=== PATIENT | female | born 1975 | race African-American/Black ===

== ENCOUNTER 2021-03-28 16:25 | Emergency (ER) | payer OTHER, SELFPAY ==
--- NOTE | ~2021-03-28 | XR_ITS ---
EXAMINATION: XR lumbar spine 2-3V DATE: 03/28/2021 19:54 INDICATION: Low back pain TECHNIQUE: Anteroposterior and lateral views of the lumbar spine, and cone-down lateral view of the l umbosacral junction were obtained. COMPARISON: None. FINDINGS: There are 2 mm of retrolisthesis of L5 on S1. There is mild loss of intervertebral disc spa ce height at L5-S1. The vertebral body heights are maintained. There is no fracture. Calcified athero sclerosis is noted. There are phleboliths of the pelvis. IMPRESSION: 1. Mild lumbar spondylosis without acute findings. Reviewed, dictated and finalized at location A.
[2021-03-28 17:02] VITALS: BP 121/84; PULSE 59; RESP 18; TEMP 36.6; O2SAT 100
[2021-03-28 17:39] LABS: Add Urine Microscopic? NO; Appearance Urine Clear (Clear); Bilirubin Urine Negative (Negative); Blood Urine Negative (Negative); Color Urine Straw (Yellow); Glucose Urine UA Negative (Negative); Ketones Urine Negative (Negative); Leukocyte Esterase Ur Negative LEU/UL (Negative); Nitrate Urine Negative (Negative); Protein Urine Negative (Negative); Specific Grav Ur 1.011 (1.001-1.035); Urobilinogen Urine Negative mg/dL (<2.0)
[2021-03-28 19:31] VITALS: BP 112/52; PULSE 56; RESP 20; O2SAT 97
--- NOTE | 2021-03-28 21:23 | ED.BACK ---
HPI - Back Pain/Injury General Chief Complaint: Back Pain/Injury Stated Complaint: back pain Time Seen by Provider: 03/28/21 19:28 Source: patient Mode of arrival: ambulatory Limitations: no limitations History of Present Illness HPI Narrative: 45-year-old with no major medical problems here with complaints of left lower back pain for past few days. She states that she was moving boxes. She states the pain is radiating into her left lower abdomen and into her buttock area. She denies any previous back injuries or back problems. Denies any bladder or bowel incontinence. MD elicited complaint: back pain Timing: constant Severity: moderate Similar Symptoms Previously: No Quality: dull Location: lumbar spine Radiation: abdomen Exacerbating factors: movement Relieving factors: none Context: while lifting Associated symptoms: denies other symptoms Related Data Allergies Allergy/AdvReac Type Severity Reaction Status Date / Time No Known Allergies Allergy Verified 03/28/21 19:57 Review of Systems Review of Systems: All systems reviewed & are unremarkable except as noted in HPI and below Constitutional: Constitutional: Reports no additional constitutional complaints Eyes: Eyes: Reports no additional eye complaints ENT: Reports system reviewed and no additional complaints, except as documented Cardiovascular: Cardiovascular: Reports no additional cardiovascular complaints Respiratory: Respiratory: Reports no additional respiratory complaints Gastrointestinal: Gastrointestinal: Reports no additional gastrointestinal complaints Musculoskeletal: Musculoskeletal: Reports as per HPI Integumentary/Breasts: Skin/Breast: Reports system reviewed and no additional complaints, except as docu Neurologic: Reports system reviewed and no additional complaints, except as documented Endocrine: Endocrine: Reports no additional endocrine complaints Exam Narrative: GENERAL: Well-appearing, well-nourished, and in no acute distress. HEAD: Normocephalic, atraumatic. EYES: PERRLA and EOMI.. NECK: Supple. CHEST: Clear to auscultation. No respiratory distress. HEART: Regular rate and rhythm. No murmur heard. Normal peripheral pulses. ABDOMEN: Soft, nontender, nondistended, normal active bowel sounds. EXTREMITIES: Normal range of motion. No edema. Back pain in the left sacro iliac area SKIN: Warm, dry, no rash. NEURO: No focal deficits. Alert and oriented x3. PSYCH: Normal mood and affect. Course Course Emergency Course: Inform patient about her x-ray and lab work. Pain appears to be more musculoskeletal. Advised her to take pain medication and muscle relaxers as prescribed. Vital Signs Vital signs: Vital Signs Temperature 36.6 C 03/28/21 17:02 Pulse Rate 59 L 03/28/21 17:02 Respiratory Rate 18 03/28/21 17:02 Blood Pressure 121/84 03/28/21 17:02 Pulse Oximetry 100 03/28/21 17:02 Temperature 36.6 C 03/28/21 17:02 Pulse Rate 56 L 03/28/21 19:31 Respiratory Rate 20 03/28/21 19:31 Blood Pressure 112/52 L 03/28/21 19:31 Pulse Oximetry 97 03/28/21 19:31 MDM - Back Pain/Injury Lab Data Labs: Lab Results 03/28/21 Range/Units 17:22 Urine Color Straw (Yellow) Urine Appearance Clear (Clear) Urine pH 6.0 (5.0-9.0) Ur Specific [place] 1.011 (1.001-1.035) Urine Protein Negative (Negative) mg/dL Urine Glucose (UA) Negative (Negative) mg/dL Urine Ketones Negative (Negative) mg/dL Ur Blood (Man) Negative (Negative) Urine Nitrate Negative (Negative) Urine Bilirubin Negative (Negative) Urine Urobilinogen Negative (<2.0) mg/dL Leukocyte Esterase Rfl Negative (Negative) DENISSE/UL UCG Bedside Result Negative Reference Range: Negative Imaging Data Radiologist's impression: ITS Impressions Lumbar Spine X-Ray 03/28/21 20:27 IMPRESSION: 1. Mild lumbar spondylosis without acute finding
[2021-03-28] MEDS: HYDROcodone/acetaminophen (*CRX) 5-325 MG TABLET 1 TAB PO (21:47)
[2021-03-28 21:55] VITALS: BP 125/76; PULSE 54; RESP 18; TEMP 36.9; O2SAT 97
== END 2021-03-28 21:55 | disposition home or self-care (01) ==
PROVIDERS: Emergency Medicine; Emergency Provider Family Medicine
DX: S39.012A Strain of muscle, fascia and tendon of lower back, initial encounter (principal); X50.0XXA Overexertion from strenuous movement or load, initial encounter
CPT/HCPCS: 72100; 81003; 81025; 99283; A9270

== ENCOUNTER 2021-07-31 16:04 | Emergency (ER) | payer SELFPAY ==
--- NOTE | ~2021-07-31 | US_ITS ---
EXAMINATION: US pelvic complete w TV DATE: 07/31/2021 18:43 INDICATION: Vaginal bleeding TECHNIQUE: Multiple transabdominal and endovaginal sonographic images of the pelvis were obtained. COMPARISON: None. FINDINGS: The uterus measures 7.2 x 4.9 x 4.1 cm. The endometrial complex measures 6 mm. A nabothian cyst is noted in the cervix. The ovaries are not visualized however no adnexal abnormality is seen. T here is no free fluid in the pelvis. IMPRESSION: 1. No sonographic correlate for the patient's symptoms. Reviewed, dictated and finalized at location F. [employer]
--- NOTE | ~2021-07-31 | XR_ITS ---
EXAMINATION: XR shoulder LT min 2V INDICATION: Left shoulder pain TECHNIQUE: Four views of the left shoulder are submitted. COMPARISON: None FINDINGS: Normal alignment. No fracture. Glenohumeral and acromioclavicular joint spaces are normal. Soft tissues are unremarkable. There are patchy opacities of the visualized lungs. IMPRESSION: 1. No acute osseous abnormality. 2. Patchy opacities of the visualized lungs which may reflect pneumonia. Reviewed, dictated and finalized at location F. [employer]
[2021-07-31 16:05] VITALS: BP 152/95; PULSE 56; RESP 18; TEMP 35.7; O2SAT 100
--- NOTE | 2021-07-31 18:18 | ED.FEMALEGU ---
HPI - Female Genitourinary General Chief complaint: Vaginal Bleeding <Zahra Valladares PA-C - Last Filed: 07/31/21 22:17> Stated complaint: vaginal bleeding <Zahra Valladares PA-C - Last Filed: 07/31/21 22:17> Time Seen by Provider: 07/31/21 17:57 <Zahra Valladares PA-C - Last Filed: 07/31/21 22:17> Source: patient <Zahra Valladares PA-C - Last Filed: 07/31/21 22:17> Mode of arrival: ambulatory <DANIELA Hernandez Last Filed: 07/31/21 22:17> Limitations: no limitations <Zahra Valladares PA-C - Last Filed: 07/31/21 22:17> History of Present Illness HPI Narrative: This is a 46-year-old female that presents to the emergency department with multiple complaints. Reports abnormal uterine bleeding. Reports she has not had a menstrual cycle in years. Reports she started to have vaginal bleeding a couple days ago. Reports she had a similar episode about a year ago and was diagnosed with BV. Also reports she has had left shoulder pain the last couple of weeks. No known injury or trauma. The pain is worse with movement and relieved with rest. Denies fever, vomiting, dysuria, numbness or weakness. <Zahra Valladares PA-C - Last Filed: 07/31/21 22:17> Related Data Allergies/Adverse reactions: Allergies Allergy/AdvReac Type Severity Reaction Status Date / Time No Known Allergies Allergy Verified 07/31/21 18:20 <Zahra Valladares PA-C - Last Filed: 07/31/21 22:17> Review of Systems Review of Systems: CONSTITUTIONAL: Denies fever GASTROINTESTINAL: Denies abdominal pain, nausea, vomiting GENITOURINARY: Denies dysuria or hematuria. <Zahra Valladares PA-C - Last Filed: 07/31/21 22:17> All systems reviewed & are unremarkable except as noted in HPI and below <Zahra Valladares PA-C - Last Filed: 07/31/21 22:17> [facility] Past Medical History Medical History: Medical History (Updated 07/31/21 @ 22:17 by Zahra Valladares PA-C) History of hypertension <Zahra Valladares PA-C - Last Filed: 07/31/21 22:17> Social History Social History: Social History (Updated 07/31/21 @ 18:22 by Zahra Valladares PA-C) Substance use: never <Zahra Valladares PA-C - Last Filed: 07/31/21 22:17> Exam Narrative: GENERAL: Well-appearing, well-nourished, and in no acute distress. HEAD: Normocephalic, atraumatic. EYES: EOMI. CHEST: Clear to auscultation. No respiratory distress. No wheezes rales or rhonchi HEART: Regular rate and rhythm. No murmur heard. Normal peripheral pulses. ABDOMEN: Soft, nontender, nondistended, normal active bowel sounds. EXTREMITIES: Normal range of motion. Pain with active ROM in the left shoulder above 90 degrees. No edema or obvious deformity. Normal radial pulses. Normal sensation SKIN: Warm, dry, no rash. NEURO: No focal deficits. Alert and oriented x3. PSYCH: Normal mood and affect PELVIC: Normal external genitalia. Normal appearing cervix, no active bleeding or abnormal discharge noted. <Zahra Valladares PA-C - Last Filed: 07/31/21 22:17> Course Vital Signs Vital signs: Vital Signs Temperature 96.2 F L 07/31/21 16:05 Pulse Rate 56 L 07/31/21 16:05 Respiratory Rate 18 07/31/21 16:05 Blood Pressure 152/95 H 07/31/21 16:05 Pulse Oximetry 100 07/31/21 16:05 Temperature 96.2 F L 07/31/21 16:05 Pulse Rate 53 L 07/31/21 18:25 Respiratory Rate 18 07/31/21 18:25 Blood Pressure 113/86 07/31/21 18:25 Pulse Oximetry 99 07/31/21 18:25 <Zahra Valladares PA-C - Last Filed: 07/31/21 22:17> MDM - Female Genitourinary MDM Narrative Medical decision making narrative: Patient presents to the emergency department with multiple complaints. Reporting abnormal vaginal bleeding. Also reporting some left shoulder pain. She is afebrile and nontoxic-appearing. Her vitals are stable. CBC without concerning findings. UA without evidence of infection. No active bleeding or abnormal discharge noted on exam. Cultures were sent. Husam
[2021-07-31 18:25] VITALS: BP 113/86; PULSE 53; RESP 18; O2SAT 99
[2021-07-31 19:09] LABS: Basophils Percent Auto 0.5 % (0.2-1.2); Eosinophils Absolute Auto 0.4 K/mm3 (0-0.3); Eosinophils Percent Auto 5.5 % (0-4.4); Hematocrit 36.9 % (37.0-47.0); Hemoglobin 12.5 g/dL (12.0-15.0); Immature Granulocyte Absolute 0.01 K/mm3 (0.00-0.031); Immature Granulocyte Percent A 0.2 % (0-0.5); Lymphocytes Absolute Auto 3.01 K/mm3 (0.9-3.2); Mean Corpuscular HGB Conc 33.9 g/dl (32-36); Mean Corpuscular Hemoglobin 35.5 pg (26-34); Mean Corpuscular Volume 104.8 fl (80-100); Mean Platelet Volume 10.4 fl (7.4-10.4); Monocytes Absolute Auto 0.5 K/mm3 (0.1-0.6); Monocytes Percent Auto 6.9 % (2.6-8.5); Neutrophils Absolute Auto 2.7 K/mm3 (1.3-6.7); Neutrophils Percent Auto 40.9 % (45.5-73.1); Platelet Count Result 254 k/mm3 (150-375); Red Blood Count 3.52 M/mm3 (4.2-5.4); Red Cell Distribution Width 13.7 % (11.5-14.5); White Blood Count 6.6 K/mm3 (4.5-10.0)
[2021-07-31 19:15] LABS: Add Urine Microscopic? YES; Appearance Urine Clear (Clear); Bilirubin Urine Negative (Negative); Blood Urine Negative (Negative); Color Urine Yellow (Yellow); Glucose Urine UA Negative (Negative); Ketones Urine Negative (Negative); Leukocyte Esterase Ur Negative LEU/UL (Negative); Mucus Urine Rare /lpf; Nitrate Urine Negative (Negative); Protein Urine Negative (Negative); RBC Urine 0-2 /hpf (0-2); Specific Grav Ur 1.016 (1.001-1.035); WBC Urine 0-3 /hpf
[2021-07-31 19:19] LABS: Prothrombin Time 12.8 Seconds (11.1-14.7)
[2021-07-31 19:20] LABS: Partial Thromboplastin Time 30.7 SECONDS (22.3-36.8)
[2021-07-31 22:09] LABS: Beta HCG Quantitative 4.43 mIU/ML
[2021-07-31 22:24] VITALS: BP 153/106; PULSE 64; RESP 18; O2SAT 97
== END 2021-07-31 22:26 | disposition home or self-care (01) ==
PROVIDERS: Physician Assistant; Emergency Provider General Practice
DX: N93.8 Other specified abnormal uterine and vaginal bleeding (principal); M25.512 Pain in left shoulder; I10 Essential (primary) hypertension; R91.8 Other nonspecific abnormal finding of lung field
CPT/HCPCS: 36415; 73030; 76830; 76856; 81001; 81025; 84702; 85025; 85610; 85730; 86850; 86900; 86901; 87070; 87491; 87591; 87808; 99284

== ENCOUNTER 2022-01-24 18:17 | Outpatient (CLI) | payer BC, SELFPAY ==
--- NOTE | ~2022-01-24 | XR_ITS ---
EXAMINATION: XR lumbar spine 2-3V DATE: 01/24/2022 18:41 INDICATION: Lumbosacral radiculopathy. TECHNIQUE: 3 views of the lumbar spine were obtained. COMPARISON: Lumbar spine radiographs 03/28/2021 FINDINGS: Bone alignment is normal. Vertebral body heights are normal. There is mildly decreased disc height at L3-L4. The facet joints are unremarkable. IMPRESSION: 1. Mild degenerative disc disease at L3-L4. Reviewed, dictated and finalized at location A.
--- NOTE | ~2022-01-24 | XR_ITS ---
EXAMINATION: XR shoulder LT min 2V DATE: 01/24/2022 18:41 INDICATION: Left shoulder pain. TECHNIQUE: 4 views of left shoulder were obtained. COMPARISON: Left shoulder radiographs 07/31/2021 FINDINGS: Bone alignment is normal. No fracture. Glenohumeral joint is normal. There is mild acromioc lavicular joint osteoarthritis. IMPRESSION: 1. Mild left acromioclavicular joint osteoarthritis. Reviewed, dictated and finalized at location A.
== END 2022-01-24 18:18 | disposition home or self-care (01) ==
PROVIDERS: PCP Registered Nurse; Visit Provider Registered Nurse
DX: M54.17 Radiculopathy, lumbosacral region (principal); M51.36 Other intervertebral disc degeneration, lumbar region; M19.012 Primary osteoarthritis, left shoulder
CPT/HCPCS: 72100; 73030